=== PATIENT | male | born 1965 ===

== ENCOUNTER 2018-10-03 10:49 | Outpatient (REF) | payer MEDICARE, MEDICAID, SELFPAY ==
[2018-10-03 22:23] LABS: Hemoglobin A1C 5.8 % (4.5-6.2)
[2018-10-03 22:27] LABS: Anion Gap 6.7 mmol/L (3-11); BUN 15 mg/dL (7-18); CO2 33.3 mmol/L (21.0-32.0); CREATININE 0.97 mg/dL (0.70-1.30); Calcium 9.3 mg/dL (8.5-10.1); Chloride 103 mmol/L (98-107); Cholesterol 210 mg/dL (50-200); Glucose 116 mg/dL (70-100); HDL Cholesterol 40 mg/dL (40-60); LDL CHOLESTEROL 154 mg/dL (<100); Potassium 4.2 mmol/L (3.5-5.1); Sodium 143 mmol/L (136-145); Triglyceride 104 mg/dL (30-150)
== END 2018-10-03 11:09 ==
LOC: NCHCN 10:49
PROVIDERS: Visit Provider Internal Medicine
DX: R73.01 Impaired fasting glucose (principal); F84.0 Autistic disorder; E78.00 Pure hypercholesterolemia, unspecified
CPT/HCPCS: 80048; 80061; 83721; 83036

== ENCOUNTER 2019-12-16 08:44 | Outpatient (REF) | payer MEDICARE, MEDICAID, SELFPAY ==
[2019-12-16 22:14] LABS: Hemoglobin A1C 5.9 % (3.8-5.6)
[2019-12-16 22:55] LABS: Calculated LDL 139 mg/dL (<100); Cholesterol 193 mg/dL (<200); Glucose 100 mg/dL (74-106); HDL Cholesterol 34 mg/dL (40-60); Triglyceride 101 mg/dL (<150)
== END 2019-12-16 09:04 ==
LOC: NCHCN 08:44
PROVIDERS: PCP Internal Medicine; Visit Provider Internal Medicine
DX: E78.5 Hyperlipidemia, unspecified (principal); R73.01 Impaired fasting glucose
CPT/HCPCS: 80061; 82947; 83036

== ENCOUNTER 2020-09-14 21:53 | Outpatient (REF) | payer MEDICARE, MEDICAID, SELFPAY ==
[2020-09-17 20:05] LABS: COVID-19 RT-PCR Result Positive (Negative)
== END 2020-09-14 22:13 ==
LOC: NCHCN 21:53
PROVIDERS: PCP Internal Medicine; Visit Provider Internal Medicine
DX: Z20.828 Contact with and (suspected) exposure to other viral communicable diseases (principal)
CPT/HCPCS: U0003

== ENCOUNTER 2022-02-01 20:37 | Outpatient (REF) | payer MEDICARE, MEDICAID, SELFPAY ==
[2022-02-01 21:08] LABS: Hemoglobin A1C 6.1 % (<5.7)
[2022-02-01 21:10] LABS: BUN 14 mg/dL (7-18); CREATININE 1.1 mg/dL (0.70-1.30); Calculated LDL 146 mg/dL (<100); Chloride 103 mmol/L (98-107); Cholesterol 208 mg/dL (<200); Glucose 128 mg/dL (74-106); HDL Cholesterol 43 mg/dL (40-60); Potassium 4.3 mmol/L (3.5-5.1); Sodium 142 mmol/L (136-145); Triglyceride 96 mg/dL (<150)
[2022-02-02 20:20] LABS: PSA, Screening 8.3 ng/mL (<=3.5)
== END 2022-02-01 20:38 | disposition home or self-care (01) ==
LOC: NCHCN 20:37
PROVIDERS: PCP Internal Medicine; Visit Provider Internal Medicine
DX: E78.5 Hyperlipidemia, unspecified (principal); R73.03 Prediabetes; Z12.5 Encounter for screening for malignant neoplasm of prostate
CPT/HCPCS: 80048; 80061; 84153; 83036

== ENCOUNTER 2022-07-05 16:18 | Outpatient (REF) | payer MEDICARE, MEDICAID, SELFPAY ==
[2022-07-06 20:36] LABS: PSA, Diagnostic 8.3 ng/mL (<=3.5)
== END 2022-07-05 16:19 | disposition home or self-care (01) ==
LOC: NCHCN 16:18
PROVIDERS: PCP Internal Medicine; Visit Provider Internal Medicine
DX: R97.20 Elevated prostate specific antigen [PSA] (principal)
CPT/HCPCS: 84153

== ENCOUNTER 2022-10-27 21:31 | Outpatient (REF) | payer MEDICARE, MEDICAID, SELFPAY ==
[2022-10-27 21:50] LABS: HCT 51.7 % (40.0-50.0); MCH 29.1 pg (27.0-33.0); MCHC 32.9 % (32.0-36.0); MCV 89 fL (80-95); MPV 10.8 fL (8.0-11.0); Platelet Count 239 10^3/uL (130-400); RBC 5.84 10^6/uL (4.36-5.78); RDW 12.5 % (11.8-14.1); RDW-SD 40.4 fL; WBC 7.39 10^3/uL (4.4-10.8)
[2022-10-27 22:18] LABS: ALT 28 U/L (16-63); AST 21 U/L (15-37); Albumin 4.3 g/dL (3.4-5.0); Alkaline Phosphatase 118 U/L (46-116); Anion Gap 7.1 mmol/L (3-11); BUN 12 mg/dL (7-18); Bilirubin, Total 0.4 mg/dL (0.2-1.0); CO2 31.9 mmol/L (21.0-32.0); CREATININE 1.1 mg/dL (0.70-1.30); Calcium 9.2 mg/dL (8.5-10.1); Chloride 103 mmol/L (98-107); Estimated GFR 78.79 (mL/min/1.73m2); Glucose 107 mg/dL (74-106); Potassium 3.8 mmol/L (3.5-5.1); Sodium 142 mmol/L (136-145); TSH (W/Ref FT4) 1.58 uIU/mL (0.36-3.74); Total Protein 8.1 g/dL (6.4-8.2)
== END 2022-10-27 21:32 | disposition home or self-care (01) ==
LOC: NCHCN 21:31
PROVIDERS: PCP Internal Medicine; Visit Provider Family Medicine
DX: R97.20 Elevated prostate specific antigen [PSA] (principal); Z01.818 Encounter for other preprocedural examination; R73.03 Prediabetes; E78.5 Hyperlipidemia, unspecified
CPT/HCPCS: 80053; 85027; 84443

== ENCOUNTER 2023-01-26 22:05 | Outpatient (REF) | payer MEDICARE, MEDICAID, SELFPAY ==
[2023-01-26 22:52] LABS: BUN 14 mg/dL (7-18); CREATININE 1.1 mg/dL (0.70-1.30); Calculated LDL 114 mg/dL (<100); Chloride 108 mmol/L (98-107); Cholesterol 175 mg/dL (<200); Estimated GFR 78.79 (mL/min/1.73m2); Glucose 177 mg/dL (74-106); HDL Cholesterol 42 mg/dL (40-60); Hemoglobin A1C 6.2 % (<5.7); Potassium 3.9 mmol/L (3.5-5.1); Sodium 144 mmol/L (136-145); Triglyceride 96 mg/dL (<150)
== END 2023-01-26 22:06 | disposition home or self-care (01) ==
LOC: NCHCN 22:05
PROVIDERS: PCP Internal Medicine; Visit Provider Internal Medicine
DX: E78.5 Hyperlipidemia, unspecified (principal); R73.03 Prediabetes
CPT/HCPCS: 80048; 80061; 83036